=== PATIENT | male | born 1975 | race Two or more races ===

== ENCOUNTER 2023-04-29 22:28 | Emergency (ER) | payer MEDICAID, OTHER ==
[~2023-04-29] VITALS: Ht 167.6 cm; Wt 69.8 kg
[2023-04-29 22:48] VITALS: BP 142/87; PULSE 93; RESP 16; O2SAT 97
== END 2023-04-29 22:54 | disposition left against medical advice (07) ==
LOC: ER 22:28
DX: S68.115A Complete traumatic metacarpophalangeal amputation of left ring finger, initial encounter (principal); F17.210 Nicotine dependence, cigarettes, uncomplicated; Z88.0 Allergy status to penicillin; Z88.1 Allergy status to other antibiotic agents; W54.0XXA Bitten by dog, initial encounter; Y93.89 Activity, other specified; Y92.89 Other specified places as the place of occurrence of the external cause; Y99.8 Other external cause status